=== PATIENT | female | born 1985 | race Caucasian/White ===

== ENCOUNTER → 2017-03-27 | Outpatient (CLI) | payer OTHER ==
--- NOTE | 2017-03-27 12:43 | RAD ---
DATE: 03/27/2017. EXAM: DIGITAL DIAGNOSTIC BILATERAL HISTORY: Pain in the lateral right breast. COMPARISON: None This study was interpreted with the benefit of Computerized Aided Detection (CAD). FINDINGS: No discrete mass or malignant appearing microcalcifications are seen. The axillae are unremarkable. Breast Density: DENSE The breast parenchyma is dense, which could reduce the sensitivity of mammography. Breast parenchyma level density D. Impression: No mammographic features suspicious for malignancy. Even so, further evaluation of the lateral right breast with ultrasound is recommended. Right breast ultrasound: Sonographic interrogation of the outer right breast was performed. No solid or cystic mass is detected. IMPRESSION: No sonographic abnormality is identified. Clinical follow-up is recommended. BI-RADS CATEGORY: 1 NEGATIVE RECOMMENDED FOLLOW-UP: CLIN FOLLOW UP IMAGING CLINICALLY INDICATED PQRS compliance statement: Patient information was entered into a reminder system with a target due date for the next mammogram. Mammography is a sensitive method for finding small breast cancers, but it does not detect them all and is not a substitute for careful clinical examination. A negative mammogram does not negate a clinically suspicious finding and should not result in delay in biopsying a clinically suspicious abnormality. "Our facility is accredited by the [employer] Mammography Program."
== END | disposition home or self-care (01) ==
LOC: MAMMO 09:26
PROVIDERS: ATTEND Nurse Practitioner Family
DX: N64.4 Mastodynia (principal)
CPT/HCPCS: 76641; G0204; 77066